=== PATIENT | female | born 1955 | race Caucasian/White ===

== ENCOUNTER 2022-01-22 14:11 | Emergency (ER) | payer OTHER ==
[~2022-01-22] VITALS: Ht 167.6 cm; Wt 70.3 kg
[2022-01-22] MEDS ORDERED: COZAAR25 MG PO (14:18)
[2022-01-22] MEDS ORDERED: LEVOTHYROXINE25 MCG PO (14:19)
== END 2022-01-22 20:42 | disposition home or self-care (01) ==
LOC: ER 14:11
DX: R55 Syncope and collapse (principal); Z20.822 Contact with and (suspected) exposure to COVID-19

== ENCOUNTER 2022-04-11 08:07 | Outpatient (CLI) | payer OTHER ==
[~2022-04-11 08:07] MED LIST: COZAAR25 MG PO; LEVOTHYROXINE25 MCG PO
== END 2022-04-11 08:10 | disposition home or self-care (01) ==
LOC: LAB 08:07
PROVIDERS: ATTEND Internal Medicine Cardiovascular Disease
DX: I10 Essential (primary) hypertension (principal); E11.9 Type 2 diabetes mellitus without complications; E03.9 Hypothyroidism, unspecified; E78.2 Mixed hyperlipidemia

== ENCOUNTER 2022-04-12 06:24 | Outpatient (CLI) | payer OTHER | END 2022-04-12 06:27 | disposition home or self-care (01) | LOC: LAB 06:24 | PROVIDERS: ATTEND Internal Medicine Cardiovascular Disease | DX: E11.9 Type 2 diabetes mellitus without complications (principal) ==